=== PATIENT | female | born 1955 | race Caucasian/White ===

== ENCOUNTER 2019-03-16 07:06 | Day surgery (SDC) | payer OTHER ==
[~2019-03-16 07:06] MED LIST: PHENYLephrine (100 MCG/ML) 5ML SYG
[2019-03-16] MEDS ORDERED: PROPOFOL 20 ML (07:23)
[2019-03-16] MEDS ORDERED: ONDANSETRON 4 MG INJ (07:23)
[2019-03-16] MEDS ORDERED: MIDAZOLAM 1 MG/ML 2 ML INJ (07:23)
[2019-03-16] MEDS ORDERED: CEFAZOLIN 1 GM INJ (07:23)
[2019-03-16] MEDS ORDERED: KETOROLAC 30 MG INJ (07:24)
[2019-03-16] MEDS ORDERED: ROPIVACAINE 0.5 % 30 ML VIAL (07:29)
[2019-03-16] MEDS ORDERED: ONDANSETRON (ODT) 4 MG TAB ODT (07:30)
[2019-03-16] MEDS ORDERED: CEFAZOLIN 1 GM/50 ML (PMX) 50 ML IVPB (07:30)
[2019-03-16] MEDS ORDERED: HYDROCODONE/APAP (10/325) TAB PO (07:30)
[2019-03-16] MEDS: LACTATED RINGER'S 1,000 ML IV (07:37)
[2019-03-16] MEDS: POLYMYXIN/BACITRACIN 1L IRRIG IRR (08:29)
[2019-03-16] MEDS: BUPIVACAINE 0.5% (SDV) 30 ML INJ (08:29)
[2019-03-16] MEDS ORDERED: HYDROmorphONE 1 MG/5 ML IV SYRINGE IV (09:30)
[2019-03-16] MEDS ORDERED: ONDANSETRON 4 MG INJ IV (09:30)
[2019-03-16] MEDS ORDERED: POLYMYXIN/BACITRACIN 1L IRRIG (09:35)
== END 2019-03-16 16:34 | disposition home or self-care (01) ==
LOC: SDS 07:06
DX: M20.41 Other hammer toe(s) (acquired), right foot (principal); M20.5X1 Other deformities of toe(s) (acquired), right foot
CPT/HCPCS: 28285; 73630; 88304; 88311